=== PATIENT | female | born 1970 | race Two or more races ===

== ENCOUNTER 2018-02-04 11:42 | Emergency (ER) | payer OTHER ==
[2018-02-04 12:00] VITALS: BP 162/95; PULSE 94; RESP 18; TEMP 98.5
--- NOTE | 2018-02-04 12:29 | ED ---
ENT HPI - General Chief complaint: ENT Stated complaint: Throat felt like it was closing Time Seen by Provider: 02/04/18 12:01 Source: patient Mode of arrival: ambulatory Limitations: no limitations - History of Present Illness Initial comments: This is a 47-year-old female past medical history of hypertension and chronic allergies/sinus issues who presents today for chief complaint of postnasal drip , and discomfort of the right side of throat x1 day. Patient states that for the past 3 weeks she has had postnasal drip and cough she denies any sore throat , fever, chills, malaise at this time. Patient states that she has chronic issues with her sinuses and seasonal ALLERGIES. She visited her ears nose throat doctor in [place], who stated that everything looked good instructed her to continue her Flonase. Today patient woke up with right sided throat discomfort, and feeling as though it was inflamed, so she presented to [facility] for evaluation who gave her 1 shot of rocephin and decadron and sent her to the ER for futher evaluation. Pt denied difficulty breathing, swallowing , allergies to food, bee stings or insect bites, fever, chills, recent weight loss, severe odynophagia, headache, dental pain, chest pain, shortness of breath , diarrhea, nausea, vomiting. Upon arrival pt afebrile. BP elevated at 162/95 however pt stated that she did not take her lisinopril yet today. In addition, patient denies any recent chest pain, back pain, abdominal pain, oliguria, nausea or vomiting, numbness or tingling, dysuria or hematuria, constipation or diarrhea, headaches or visual changes, or any other complaints. - Related Data Previous Rx's Medication Instructions Recorded Amoxicillin/Potassium Clav 1 tab PO Q12HR 7 Days #14 tab 02/04/18 [Augmentin 500-125 Tablet] predniSONE 20 mg PO DAILY 4 Days #4 tab 02/04/18 Allergies Allergy/AdvReac Type Severity Reaction Status Date / Time Iodinated Contrast- Oral and Allergy Unknown Verified 02/04/18 11:57 IV Dye Review of Systems ROS Statement: Those systems with pertinent positive or pertinent negative responses have been documented in the HPI. ROS Other: All systems not noted in ROS Statement are negative. Constitutional: Denies: fever, chills, weakness, night sweats Eyes: Denies: vision change ENT: Reports: throat pain. Denies: ear pain, hearing loss Respiratory: Reports: cough. Denies: dyspnea, wheezes, hemoptysis, stridor Cardiovascular: Denies: chest pain, palpitations, dyspnea on exertion, edema Gastrointestinal: Denies: abdominal pain, nausea, vomiting, diarrhea, constipation Genitourinary: Denies: urgency, dysuria Skin: Denies: rash Neurological: Denies: headache, weakness, numbness, paresthesias, confusion, abnormal gait Past Medical History Past Medical History: Hypertension History of Any Multi-Drug Resistant Organisms: None Reported Additional Past Surgical History / Comment(s): lymph node removed Past Psychological History: No Psychological Hx Reported Smoking Status: Never smoker Past Alcohol Use History: None Reported Past Drug Use History: None Reported General Exam - General Exam Comments Initial Comments: General: The patient is awake and alert, in no distress, and does not appear acutely ill. Pt is comfortable appearing in no acute distress and non-toxic. Eye: Pupils are equal, round and reactive to light, extra-ocular movements are intact. No nystagmus. There is normal conjunctiva bilaterally. No signs of icterus. Ears, nose, mouth and throat: There are moist mucous membranes and no oral lesions. orpharynx is erythematous without exudates or lesions. No evidence of peritonsillar or phayrngeal abscess. Right tonsil slightly enlarged in comparison with the left. Left tonsil WNL. uvula midline, no contralateral deviation. No trismus or drooling evident upon exam. No lesions or swelling below the tongue. Neck: The neck is supple, there is no tenderness or JVD. Right sided anterior cervical lymphadenopathy. Cardiovascular: There is a regular rate and rhythm. No murmur, rub or gallop is appreciated. Respiratory: Lungs are clear to auscultation, respirations are non-labored, breath sounds are equal. No wheezes, stridor, rales, or rhonchi. No signs of respiratory distress, no muffled voice. Musculoskeletal: Normal ROM, no tenderness. Strength 5/5. Sensation intact. Pulses equal bilaterally 2+. Neurological: A&O x 3. CN II-XII intact, There are no obvious motor or sensory deficits. Coordination appears grossly intact. Speech is normal. Skin: Skin is warm and dry and no rashes or lesions are noted. Psychiatric: Cooperative, appropriate mood & affect, normal judgment. Limitations: no limitations Course Vital Signs 02/04/18 11:57 Temperature 98.5 F Pulse Rate 94 Respiratory 18 Rate Blood Pressure 162/95 O2 Sat by Pulse 98 Oximetry Medical Decision Making - Medical Decision Making 47yo female with PMH of hypertension presenting for right sided throat discomfort concerning for pharyngitis or tonsilar cellulitis. Exam was remarkable or erythematous oropharynx and right sided tonsillar erythema and mild enlargement, no evidence of abscess, or respiratory distress. Mild anterior cervical lymphadenopathy. At this time i feel pt has pharyngitis with possible tonsillar cellulitis. No dental pain or palpable abscess, no edema or lesions below tongue no suspicion for ludwigs angina at this time. Case discussed with Dr. Suarez who agreed with impression and plan. Pt given RX for augment q12hr x7 days and prednisone x4 days. Pt was told to f/u with PCP in 1- 2 days and to return to ER in symptoms worsen or she experiences difficulty breathing, throat swelling, or difficulty swallowing. If symptoms persist for > 1 week pt was given ENT referral for further evaluation and treatment. Pt agreed with plan and was discharged in stable condition. Pt BP elevated however she stated she would go home and take her RX of lisinopril. She denied any symptoms of EOD. Remainder of VS WNL. Disposition Clinical Impression: Pharyngitis Disposition: HOME SELF-CARE Condition: Good Instructions: Pharyngitis (ED) Additional Instructions: Please use medication as discussed. Please follow-up with family doctor in the next 2 days of symptoms have not improved. Please return to emergency room if the symptoms increase or worsen or for any other concerns, as discussed. If symptoms persist for greater than 1 week please see ENT for follow-up, as discussed. Prescriptions: Amoxicillin/Potassium Clav [Augmentin 500-125 Tablet] 1 tab PO Q12HR 7 Days #14 tab predniSONE 20 mg PO DAILY 4 Days #4 tab Is patient prescribed a controlled substance at d/c from ED?: No Referrals: Nonstaff,Physician [Primary Care Provider] - 1-2 days Sohan De Dios MD [STAFF PHYSICIAN] - 02/11/18 Time of Disposition: 12:28
== END 2018-02-04 12:57 | disposition home or self-care (01) ==
LOC: EC 11:42
DX: J02.9 Acute pharyngitis, unspecified (principal); I10 Essential (primary) hypertension; Z91.041 Radiographic dye allergy status
CPT/HCPCS: 99283

== ENCOUNTER 2018-02-06 05:52 | Emergency (ER) | payer OTHER ==
[2018-02-06 05:59] VITALS: BP 159/94; PULSE 77; RESP 18; TEMP 98.1
--- NOTE | 2018-02-06 06:22 | ED ---
ENT HPI - General Chief complaint: ENT Stated complaint: Sore Throat Time Seen by Provider: 02/06/18 06:03 Source: patient, RN notes reviewed Mode of arrival: ambulatory Limitations: no limitations - History of Present Illness Initial comments: 47-year-old female presents emergency Department chief complaint of right-sided throat pain. Patient states initially started on Wednesday was seen at [facility] and sent to the emergency room for further evaluation. She did receive a shot of steroids, Rocephin at that time. Patient was placed on Augmentin states that she's taken approximately 4 doses of antibiotics. Patient states that some the swelling has improved though she somewhat feels a has not. Patient states there is minimal discomfort denies fever, chills, neck pain or neck stiffness. Patient states that she would has not followed up with ENT or primary care physician because it's been the weekend. Patient reports no other associated symptoms. Patient states that she was advised to come back to emergency room if she had no improvement in 2 days. - Related Data Home Medications Medication Instructions Recorded Confirmed Lisinopril [Zestril] 10 mg PO DAILY 02/06/18 02/06/18 Previous Rx's Medication Instructions Recorded Amoxicillin/Potassium Clav 1 tab PO Q12HR 7 Days #14 tab 02/04/18 [Augmentin 500-125 Tablet] predniSONE 20 mg PO DAILY 4 Days #4 tab 02/04/18 Allergies Allergy/AdvReac Type Severity Reaction Status Date / Time Iodinated Contrast- Oral and Allergy Unknown Verified 02/06/18 05:59 IV Dye Review of Systems ROS Statement: Those systems with pertinent positive or pertinent negative responses have been documented in the HPI. ROS Other: All systems not noted in ROS Statement are negative. Past Medical History Past Medical History: Hypertension History of Any Multi-Drug Resistant Organisms: None Reported Additional Past Surgical History / Comment(s): lymph node removed, Past Psychological History: No Psychological Hx Reported Smoking Status: Never smoker Past Alcohol Use History: None Reported Past Drug Use History: None Reported General Exam Limitations: no limitations General appearance: alert, in no apparent distress Head exam: Present: atraumatic, normocephalic, normal inspection Eye exam: Present: normal appearance, PERRL, EOMI. Absent: scleral icterus, conjunctival injection, periorbital swelling ENT exam: Present: mucous membranes moist, TM's normal bilaterally, normal external ear exam. Absent: normal oropharynx (Mild swelling on the right tonsillar region patient is swallowing secretions well no airway impedment ) Neck exam: Present: normal inspection, full ROM. Absent: tenderness, meningismus, lymphadenopathy Respiratory exam: Present: normal lung sounds bilaterally. Absent: respiratory distress, wheezes, rales, rhonchi, stridor Cardiovascular Exam: Present: regular rate, normal rhythm, normal heart sounds. Absent: systolic murmur, diastolic murmur, rubs, gallop, clicks Neurological exam: Present: alert, oriented X3, CN II-XII intact Skin exam: Present: warm, dry, intact, normal color. Absent: rash Course Vital Signs 02/06/18 05:55 Temperature 98.1 F Pulse Rate 77 Respiratory 18 Rate Blood Pressure 159/94 O2 Sat by Pulse 97 Oximetry Medical Decision Making - Medical Decision Making 47-year-old female presented for recheck of her sore throat. Patient has mild swelling on the right and patient initially felt that it was not getting better because she told she was to have much improvement 2 days. Patient symptoms have not worsened she has no airway compromise. Secondary to patient having revisit and initially film it was worse she was offered lab work and CT patient refuses. Patient requested further steroids though she has had a shot of steroids and a prescription for 4 days and she was informed this is a long enough course of steroids as she should continue antibiotics as directed and follow-up with ENT. Disposition Clinical Impression: Acute tonsillitis Disposition: HOME SELF-CARE Condition: Stable Instructions: Tonsillitis (ED) Additional Instructions: Please return to the Emergency Department if symptoms worsen or any other concerns. Is patient prescribed a controlled substance at d/c from ED?: No Referrals: Nonstaff,Physician [Primary Care Provider] - 1-2 days Sohan De Dios MD [STAFF PHYSICIAN] - 1-2 days Time of Disposition: 06:36
== END 2018-02-06 06:43 | disposition home or self-care (01) ==
LOC: EC 05:52
DX: J03.90 Acute tonsillitis, unspecified (principal); I10 Essential (primary) hypertension; Z53.29 Procedure and treatment not carried out because of patient's decision for other reasons; Z79.899 Other long term (current) drug therapy; Z91.041 Radiographic dye allergy status
CPT/HCPCS: 99282

== ENCOUNTER → 2018-04-20 | Outpatient (CLI) | payer OTHER ==
--- NOTE | 2018-05-09 11:18 | MM ---
Reason for exam: screening (asymptomatic). Last mammogram was performed 1 year and 4 months ago. History: Patient is nulliparous. Physical Findings: A clinical breast exam by your physician is recommended on an annual basis and results should be correlated with mammographic findings. MG 3D Screening Mammo W/Cad Bilateral CC and MLO view(s) were taken. Prior study comparison: December 24, 2016, mammogram, performed at [facility]. The breast tissue is heterogeneously dense. This may lower the sensitivity of mammography. No suspicious abnormality. No significant changes when compared with prior studies. ASSESSMENT: Negative, BI-RAD 1 RECOMMENDATION: Routine screening mammogram of both breasts in 1 year.
== END | disposition home or self-care (01) ==
LOC: RADMAMWWP 10:22
PROVIDERS: ATTEND Internal Medicine
DX: Z12.31 Encounter for screening mammogram for malignant neoplasm of breast (principal)
CPT/HCPCS: 77063; 77067

== ENCOUNTER → 2018-09-21 | Outpatient (CLI) | payer BC, OTHER ==
--- NOTE | 2018-09-22 07:17 | US ---
EXAMINATION TYPE: US pelvis complete transvag DATE OF EXAM: 09/21/2018 COMPARISON: NONE CLINICAL HISTORY: N97.9 FEMALE INFERTILITY. Infertility TECHNIQUE: Transvaginal (TV) and Transabdominal (TA) . Transabdominal sonographic images of the pel vis were acquired. Transvaginal sonographic images were medically necessary to better assess the fol lowing anatomy: ovaries Date of LMP: 09/04/18 EXAM MEASUREMENTS: Uterus: 8.9 x 4.0 x 5.8cm Endometrial Stripe: 1.0cm Right Ovary: unable to visualize Left Ovary: 3.6 x 1.6 x 1.6cm 1. Uterus: Anteverted Nabothian cysts noted. at least 2 hypoechoic nodules which may represent fib roids, left body = 3.5 x 3.2 x 3.4cm and anterior body = 2.1 x 1.9 x 2.3cm 2. Endometrium: appears wnl 3. Right Ovary: Obscured by overlying bowel gas 4. Left Ovary: 1 follicle = 1.4 x 1.0 x 1.0cm 5. Bilateral Adnexa: appears wnl 6. Posterior cul-de-sac: wnl IMPRESSION: 1. There are 2 hypoechoic nodule within the uterine body which are nonspecific but most likely in the basis of fibroids. Largest measures 3.5 cm.
== END | disposition home or self-care (01) ==
LOC: RADUSWWP 15:18
PROVIDERS: ATTEND Internal Medicine
DX: N97.9 Female infertility, unspecified (principal); N85.8 Other specified noninflammatory disorders of uterus
CPT/HCPCS: 76830; 76856

== ENCOUNTER 2020-01-28 23:51 | Emergency (ER) | payer BC, OTHER ==
--- NOTE | 2020-01-29 00:15 | ED ---
General Adult HPI - General Chief complaint: Extremity Injury, Upper Stated complaint: Left shoulder pain Time Seen by Provider: 01/29/20 00:01 Source: patient Mode of arrival: ambulatory Limitations: no limitations - History of Present Illness Initial comments: 49-year-old female patient presents to the emergency department today for evaluation of left-sided chest, left shoulder, left arm pain. Patient states that she was diagnosed with breast cancer, had bilateral mastectomy with right- sided lymph node removal. Patient states she recently started oral tamoxifen which has made her blood pressure increased. Patient states she checked her blood pressure several times today, she believes around 6 times in a 2 hour period. States that with the last check she started to have left upper arm, left shoulder, and left-sided chest pain. Patient states that she does have a port in the left chest, last use in December. She states it initially hurt to move her left arm, but now it does not cause increased pain. She states that she still feels an odd sensation over the left chest, left arm, and left shoulder. Patient denies any shortness of breath, increased pain with breathing, nausea, or sweats. Denies any swelling to the left arm. Patient denies fever or chills. Denies cough or congestion. Patient denies any recent rash, abdominal pain, trish rrhea, constipation, back pain, numbness, tingling, dizziness, weakness, hematuria, dysuria, urinary urgency, urinary frequency, headache, visual changes, or any other complaints. - Related Data Home Medications Medication Instructions Recorded Confirmed lisinopriL [Zestril] 10 mg PO DAILY 02/06/18 02/06/18 Previous Rx's Medication Instructions Recorded Amoxicillin/Potassium Clav 1 tab PO Q12HR 7 Days #14 tab 02/04/18 [Augmentin 500-125 Tablet] predniSONE [Deltasone] 20 mg PO DAILY 4 Days #4 tab 02/04/18 Ibuprofen [Motrin] 600 mg PO Q8HR PRN #30 tab 01/29/20 Allergies Allergy/AdvReac Type Severity Reaction Status Date / Time Iodinated Contrast Media Allergy Unknown Verified 01/28/20 23:59 [Iodinated Contrast- Oral and IV Dye] Review of Systems ROS Statement: Those systems with pertinent positive or pertinent negative responses have been documented in the HPI. ROS Other: All systems not noted in ROS Statement are negative. Past Medical History Past Medical History: Hypertension Additional Past Medical History / Comment(s): breast CA History of Any Multi-Drug Resistant Organisms: None Reported Additional Past Surgical History / Comment(s): lymph node removed, double isa landers Past Psychological History: No Psychological Hx Reported Smoking Status: Never smoker Past Alcohol Use History: None Reported Past Drug Use History: None Reported General Exam Limitations: no limitations General appearance: alert, in no apparent distress, other (This is a well- developed, well-nourished adult female patient in no acute distress. Vital signs upon presentation are temperature 98.6F, pulse 90, respirations 20, blood pressure 208/125, pulse ox 97% on room air.) Eye exam: Present: normal appearance, PERRL, EOMI. Absent: scleral icterus, conjunctival injection, periorbital swelling ENT exam: Present: normal exam, normal oropharynx, mucous membranes moist Respiratory exam: Present: normal lung sounds bilaterally. Absent: respiratory distress, wheezes, rales, rhonchi, stridor Cardiovascular Exam: Present: regular rate, normal rhythm, normal heart sounds. Absent: systolic murmur, diastolic murmur, rubs, gallop, clicks GI/Abdominal exam: Present: soft, normal bowel sounds. Absent: distended, tenderness, guarding, rebound, rigid Extremities exam: Present: normal inspection, full ROM, normal capillary refill, other (Radial pulses 2+ and equal bilaterally. Skin the left arm is warm and dry. Cap refills less than 3 seconds. No swelling noted.). Absent: tenderness, pedal edema, joint swelling, calf tenderness Neurological exam: Present: alert, oriented X3, CN II-XII intact Psychiatric exam: Present: normal affect, normal mood Skin exam: Present: warm, dry, intact, normal color. Absent: rash Course Vital Signs 01/28/20 01/29/20 23:53 01:35 Temperature 98.6 F Pulse Rate 90 83 Respiratory 20 18 Rate Blood Pressure 208/125 185/83 O2 Sat by Pulse 97 98 Oximetry Medical Decision Making - Medical Decision Making 49-year-old female patient presents to the emergency department today for evaluation of left shoulder and left upper chest pain. Physical examination was unremarkable. Lungs are clear to auscultation with good air movement. Patient's left arm was neurovascularly intact. No evidence for swelling. Labs reviewed and were unremarkable. She did have elevated d-dimer 1.36. CT chest angiography was obtained and was negative. Patient was given pain medication here. Upon reevaluation she is resting comfortably. Still reports discomfort to the left side. She'll be discharged home to follow-up with her primary care physician and oncologist for recheck as soon as possible. Return parameters were discussed in detail. She verbalizes understanding and agrees with this plan. - Lab Data Result diagrams: 01/29/20 00:41 01/29/20 00:41 Lab Results 01/29/20 01/29/20 01/29/20 Range/Units 00:41 00:41 00:41 WBC 9.2 (3.8-10.6) k/uL RBC 4.40 (3.80-5.40) m/uL Hgb 13.2 (11.4-16.0) gm/dL Hct 41.3 (34.0-46.0) % MCV 93.7 (80.0-100.0) fL MCH 30.1 (25.0-35.0) pg MCHC 32.1 (31.0-37.0) g/dL RDW 12.7 (11.5-15.5) % Plt Count 289 (150-450) k/uL Neutrophils % 62 % Lymphocytes % 27 % Monocytes % 7 % Eosinophils % 2 % Basophils % 0 % Neutrophils # 5.7 (1.3-7.7) k/uL Lymphocytes # 2.4 (1.0-4.8) k/uL Monocytes # 0.6 (0-1.0) k/uL Eosinophils # 0.2 (0-0.7) k/uL Basophils # 0.0 (0-0.2) k/uL PT 9.5 (9.0-12.0) sec INR 0.9 (<1.2) APTT 22.9 (22.0-30.0) sec D-Dimer 1.36 H (<0.60) mg/L FEU Sodium 139 (137-145) mmol/L Potassium 4.1 (3.5-5.1) mmol/L Chloride 102 (98-107) mmol/L Carbon Dioxide 27 (22-30) mmol/L Anion Gap 10 mmol/L BUN 18 H (7-17) mg/dL Creatinine 0.72 (0.52-1.04) mg/dL Est GFR (CKD-EPI)AfAm >90 (>60 ml/min/1.73 sqM) Est GFR (CKD-EPI)NonAf >90 (>60 ml/min/1.73 sqM) Glucose 112 H (74-99) mg/dL Calcium 10.0 (8.4-10.2) mg/dL Magnesium 1.7 (1.6-2.3) mg/dL Total Bilirubin 0.3 (0.2-1.3) mg/dL AST 31 (14-36) U/L ALT 33 (4-34) U/L Alkaline Phosphatase 81 (38-126) U/L Troponin I (0.000-0.034) ng/mL Total Protein 7.7 (6.3-8.2) g/dL Albumin 4.7 (3.5-5.0) g/dL 01/29/20 Range/Units 00:41 WBC (3.8-10.6) k/uL RBC (3.80-5.40) m/uL Hgb (11.4-16.0) gm/dL Hct (34.0-46.0) % MCV (80.0-100.0) fL MCH (25.0-35.0) pg MCHC (31.0-37.0) g/dL RDW (11.5-15.5) % Plt Count (150-450) k/uL Neutrophils % % Lymphocytes % % Monocytes % % Eosinophils % % Basophils % % Neutrophils # (1.3-7.7) k/uL Lymphocytes # (1.0-4.8) k/uL Monocytes # (0-1.0) k/uL Eosinophils # (0-0.7) k/uL Basophils # (0-0.2) k/uL PT (9.0-12.0) sec INR (<1.2) APTT (22.0-30.0) sec D-Dimer (<0.60) mg/L FEU Sodium (137-145) mmol/L Potassium (3.5-5.1) mmol/L Chloride (98-107) mmol/L Carbon Dioxide (22-30) mmol/L Anion Gap mmol/L BUN (7-17) mg/dL Creatinine (0.52-1.04) mg/dL Est GFR (CKD-EPI)AfAm (>60 ml/min/1.73 sqM) Est GFR (CKD-EPI)NonAf (>60 ml/min/1.73 sqM) Glucose (74-99) mg/dL Calcium (8.4-10.2) mg/dL Magnesium (1.6-2.3) mg/dL Total Bilirubin (0.2-1.3) mg/dL AST (14-36) U/L ALT (4-34) U/L Alkaline Phosphatase (38-126) U/L Troponin I <0.012 (0.000-0.034) ng/mL Total Protein (6.3-8.2) g/dL Albumin (3.5-5.0) g/dL - EKG Data -: EKG Interpreted by Ne EKG Comments: EKG obtained at 0014 shows normal sinus rhythm with a ventricular rate of 95, SD interval 150, QRS duration 72, QT 360, QTC 452. No evidence of ST elevation or depression. - Radiology Data Radiology results: report reviewed, image reviewed Two-view x-ray of the chest is obtained. Report was reviewed in its entirety. Impression by Dr. Bapitste shows no active cardiopulmonary disease. Normal heart. CT chest angiography for PE was obtained. Report reviewed in its entirety. Impression by Dr. Baptiste shows no evidence of pulmonary embolus. Mild subsegmental atelectasis in the lower lung rice. Disposition Clinical Impression: Left shoulder pain Disposition: HOME SELF-CARE Condition: Good Instructions (If sedation given, give patient instructions): Shoulder Pain (ED) Additional Instructions: Take medications as directed. Follow up with your oncologist and primary care physician for recheck in 1-2 days. If your symptoms persist or if you develop swelling to the left arm discuss possible doppler. Return to the emergency department for any new, worsening, or concerning symptoms. Prescriptions: Ibuprofen [Motrin] 600 mg PO Q8HR PRN #30 tab PRN Reason: Pain Is patient prescribed a controlled substance at d/c from ED?: No Referrals: Nonstaff,Physician [Primary Care Provider] - 1-2 days Time of Disposition: 03:04
[2020-01-29 00:49] LABS: Basophils % (A) 0 %; Eosinophils # (A) 0.2 k/uL (0-0.7); Eosinophils % (A) 2 %; HCT 41.3 % (34.0-46.0); HGB 13.2 gm/dL (11.4-16.0); Lymphocytes # (A) 2.4 k/uL (1.0-4.8); Lymphocytes % (A) 27 %; MCH 30.1 pg (25.0-35.0); MCHC 32.1 g/dL (31.0-37.0); MCV 93.7 fL (80.0-100.0); Mean Platelet Volume 6.9; Monocytes # (A) 0.6 k/uL (0-1.0); Monocytes % (A) 7 %; Neutrophils # (A) 5.7 k/uL (1.3-7.7); Neutrophils % (A) 62 %; Platelet Count 289 k/uL (150-450); RDW 12.7 % (11.5-15.5); WBC 9.2 k/uL (3.8-10.6)
[2020-01-29 00:59] LABS: AST 31 U/L (14-36); African American GFR (CKD) >90 (>60 ml/min/1.73 sqM); Albumin 4.7 g/dL (3.5-5.0); Alkaline Phosphatase 81 U/L (38-126); Blood Urea Nitrogen 18 mg/dL (7-17); Carbon Dioxide 27 mmol/L (22-30); Chloride 102 mmol/L (98-107); Glucose 112 mg/dL (74-99); Magnesium 1.7 mg/dL (1.6-2.3); Non-African American GFR(CKD) >90 (>60 ml/min/1.73 sqM); Potassium 4.1 mmol/L (3.5-5.1); Total Bilirubin 0.3 mg/dL (0.2-1.3); Total Protein 7.7 g/dL (6.3-8.2)
[2020-01-29 01:02] LABS: INR 0.9 (<1.2); Partial Thromboplastin Time 22.9 sec (22.0-30.0); Prothrombin Time 9.5 sec (9.0-12.0)
[2020-01-29 01:06] LABS: ALT 33 U/L (4-34); Anion Gap 10 mmol/L; Sodium 139 mmol/L (137-145)
--- NOTE | 2020-01-29 01:13 | XR ---
EXAMINATION TYPE: XR chest 2V DATE OF EXAM: 01/29/2020 COMPARISON: NONE HISTORY: Chest pain TECHNIQUE: FINDINGS: Heart and mediastinum are normal. Lungs are clear. Diaphragm is normal. There is left subcl jalyn catheter with tip in the superior vena cava. There is no pleural effusion. Bony thorax is intac t. There are chest leads. There are bilateral breast implants. IMPRESSION: No active cardiopulmonary disease. Normal heart.
[2020-01-29 01:20] LABS: D-Dimer 1.36 mg/L FEU (<0.60)
[2020-01-29 01:37] VITALS: RESP 18
[2020-01-29] MEDS ORDERED: FAMOTIDINE 20 MG/2 ML VIAL IV STA (01:49)
[2020-01-29] MEDS ORDERED: methylPREDNISolone SOD SUCCI 125 MG/2 ML VIAL IV STA (01:50)
[2020-01-29] MEDS ORDERED: diphenhydrAMINE 50 MG/ML 1 ML VIAL IVP STA (01:50)
[2020-01-29] MEDS ORDERED: ONDANSETRON 4 MG/2 ML VIAL IVP STA (02:25)
[2020-01-29] MEDS ORDERED: MORPHINE SULFATE 4 MG/ML SYRINGE IVP STA (02:25)
--- NOTE | 2020-01-29 02:57 | CT ---
EXAMINATION TYPE: CT chest angio for PE DATE OF EXAM: 01/29/2020 COMPARISON: None HISTORY: R/O PE CT DLP: 446.20 mGycm Automated exposure control for dose reduction was used. CONTRAST: Performed with IV Contrast, patient injected with 80 mL of Isovue 370. There are 3-D post processed images. The lungs are clear of consolidation. There is mild linear density left lung base. There is no pleura l effusion. There is no pericardial effusion. There is no mediastinal adenopathy. There are no hilar masses. Thoracic aorta is intact. There is no aneurysm or dissection. There is normal contrast opacification of the pulmonary arteries. There are n o filling defects. There are bilateral breast implant tissue expanders. Thoracic vertebra have normal alignment. Posteri or elements are intact. There is no compression fracture. Sternum is intact. Upper abdominal soft tis sues are intact. IMPRESSION: No evidence of pulmonary embolism. Mild subsegmental atelectasis in the lower lung rice.
[2020-01-29] MEDS ORDERED: IBUPROFEN 600 MG STARTER PACK 4 TAB BTL PO STA (03:05)
[2020-01-29 03:35] VITALS: BP 151/88; PULSE 71; TEMP 98.4
== END 2020-01-29 03:34 | disposition home or self-care (01) ==
LOC: EC 23:51
DX: M25.512 Pain in left shoulder (principal); I10 Essential (primary) hypertension; R07.9 Chest pain, unspecified; R79.89 Other specified abnormal findings of blood chemistry; Z79.899 Other long term (current) drug therapy; Z91.041 Radiographic dye allergy status; Z85.3 Personal history of malignant neoplasm of breast; Z98.890 Other specified postprocedural states; Z90.13 Acquired absence of bilateral breasts and nipples
CPT/HCPCS: 36415; 93005; 85379; 80053; 83735; 84484; 85025; 85610; 85730; 71046; 71275; 99284; 96374; 96375 ×4; J2270; J1200; J2930; J2405; Q9967

== ENCOUNTER → 2023-06-22 | Outpatient (CLI) | payer BC ==
[2023-06-22 19:09] LABS: Basophils # (A) 0.05 X 10*3/uL (0.00-0.10); Basophils % (A) 0.6 %; Eosinophils # (A) 0.29 X 10*3/uL (0.04-0.35); Eosinophils % (A) 3.7 %; HCT 41.5 % (37.2-46.3); HGB 13.4 g/dL (12.0-15.0); Immature Platelet Fraction 9.8 % (1.1-6.1); Lymphocytes % (A) 30.2 %; MCH 29.7 pg (27.0-32.0); MCHC 32.3 g/dL (32.0-37.0); Mean Platelet Volume 10.3 FL (9.5-12.2); Monocytes # (A) 0.64 X 10*3/uL (0.20-1.00); Monocytes % (A) 8.1 %; NRBC Per 100 WBC 0 X 10*3/uL (0.00-0.01); Neutrophils # (A) 4.54 X 10*3/uL (1.80-7.70); Neutrophils % (A) 57.1 %; RBC 4.51 X 10*6/uL (4.10-5.20); RBC Morphology Normal (Normal); RDW 12.6 % (11.5-14.5); WBC 7.94 X 10*3/uL (4.50-10.00)
== END | disposition home or self-care (01) ==
LOC: LABWHC1 15:40
PROVIDERS: ATTEND Internal Medicine
DX: I10 Essential (primary) hypertension (principal)
CPT/HCPCS: 36415; 85025

== ENCOUNTER → 2024-03-15 | Outpatient (CLI) | payer BC ==
--- NOTE | 2024-03-15 16:34 | US ---
EXAMINATION TYPE: US carotid duplex BILAT DATE OF EXAM: 03/15/2024 COMPARISON: NONE CLINICAL INDICATION: Female, 53 years old with history of I65.23 Carotid stenosis, bilateral; headach es TECHNIQUE: Grayscale, color Doppler and spectral Doppler evaluation of the bilateral carotid systems and vertebral arteries.Indirect Doppler criteria was utilized. FINDINGS: EXAM MEASUREMENTS: RIGHT: Peak Systolic Velocity (PSV) cm/sec ----- Right CCA: 110 ----- Right ICA: 91.7 ----- Right ECA: 88.9 ICA/CCA ratio: 0.83 RIGHT: End Diastole cm/sec ----- Right CCA: 30.6 ----- Right ICA: 13.6 ----- Right ECA: 19.2 LEFT: Peak Systolic Velocity (PSV) cm/sec ----- Left CCA: 120 ----- Left ICA: 60.5 ----- Left ECA: 75.3 ICA/CCA ratio: 0.50 LEFT: End Diastole cm/sec ----- Left CCA: 31.4 ----- Left ICA: 31.2 ----- Left ECA: 12.9 VERTEBRALS (direction of flow): Right Vertebral: Antegrade Left Vertebral: Antegrade Rhythm: Normal NEWS VIDEO EDITOR NOTES: No evidence of significant stenosis as visualized IMPRESSION: Less than 50% stenosis of the bilateral carotid bifurcations. Criteria for Assigning % of Stenosis / Diameter reduction (Estimation based on the indirect measurements of the internal carotid artery velocities (ICA PSV). 1. Normal (no stenosis)=ICA PSV < 125 cm/s: ratio < 2.0: ICA EDV<40 cm/s. 2. Less than 50% stenosis=ICA PSV < 125 cm/s: ratio < 2.0: ICA EDV<40 cm/s. 3. 50 to 69% stenosis=ICA PSV of 125 to 230 cm/s: ration 2.0 ? 4.0: ICA EDV 40-100 cm/s. 4. Greater than 70% stenosis to near occlusion= ICA PSV > 230 cm/s: ratio > 4.0: ICA EDV > 100 cm/s. 5. Near occlusion= ICA PSV velocities may be low or undetectable: variable ratio and ICA EDV. 6. Total occlusion=unable to detect flow. [facility], , 03/15/2024 4:32 PM
== END | disposition home or self-care (01) ==
LOC: RADUSWWP 14:44
PROVIDERS: ATTEND Internal Medicine
DX: I65.23 Occlusion and stenosis of bilateral carotid arteries (principal)
CPT/HCPCS: 93880